=== PATIENT | male | born 1975 | race Caucasian/White ===

== ENCOUNTER 2020-08-31 20:59 | Emergency (ER) | payer SELFPAY ==
[2020-08-31 21:12] VITALS: BP 185/98; PULSE 78; RESP 18; TEMP 36.7; O2SAT 99
--- NOTE | 2020-08-31 22:13 | ED.GENADULT ---
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 Patient denies other complaints injury or trauma Related Data Allergies Allergy/AdvReac Type Severity Reaction Status Date / Time No Known Allergies Allergy Verified 08/31/20 21:16 Review of Systems Review of Systems: All systems reviewed & are unremarkable except as noted in HPI and below PMFSH Past Medical History Medical History (Updated 08/31/20 @ 22:17 by Malcolm Gomez PA-C) Obese Exam Narrative: Exam Narrative: GENERAL: Well-appearing, obese, and in no acute distress. HEAD: Normocephalic, atraumatic. EYES: PERRLA and EOMI. ENT: Nares clear, no rhinorrhea or epistaxis. Mucous membranes moist. CHEST: Clear to auscultation. No respiratory distress. No wheezes rales or rhonchi HEART: Regular rate and rhythm. No murmur heard. Normal peripheral pulses. ABDOMEN: Soft, nontender, nondistended EXTREMITIES: Normal range of motion. No edema. No tenderness of the left shoulder or left leg no cervical thoracic or lumbar tenderness SKIN: Warm, dry, no rash. NEURO: No focal deficits. Alert and oriented x3. Cranial nerves II through XII grossly intact. Neurovascularly intact. Normal speech and gait PSYCH: Normal mood and affect. Course Course Emergency Course: Patient in the room in no distress aware of case findings agreeing to follow-up as instructed Vital Signs Vital signs: Vital Signs Temperature 98.0 F 08/31/20 21:12 Pulse Rate 78 08/31/20 21:12 Respiratory Rate 18 08/31/20 21:12 Blood Pressure 185/98 H 08/31/20 21:12 Pulse Oximetry 99 08/31/20 21:12 Temperature 98.0 F 08/31/20 21:12 Pulse Rate 78 08/31/20 21:12 Respiratory Rate 18 08/31/20 21:12 Blood Pressure 185/98 H 08/31/20 21:12 Pulse Oximetry 99 08/31/20 21:12 Medical Decision Making MDM Narrative Medical decision making narrative: Patients injury or pain is consistent with musculoskeletal etiology. No signs of neurological or vascular compromise on exam. Compartments and tisues are soft without signs of compartment syndrome. Pain is felt appropriate for further evaluation on an outpatient basis. Vital Signs Vital Signs: Vital Signs Temperature 98.0 F 08/31/20 21:12 Pulse Rate 78 08/31/20 21:12 Respiratory Rate 18 08/31/20 21:12 Blood Pressure 185/98 H 08/31/20 21:12 Pulse Oximetry 99 08/31/20 21:12 Temperature 98.0 F 08/31/20 21:12 Pulse Rate 78 08/31/20 21:12 Respiratory Rate 18 08/31/20 21:12 Blood Pressure 185/98 H 08/31/20 21:12 Pulse Oximetry 99 08/31/20 21:12 Discharge Plan Discharge Clinical Impression: Arm pain, left, Acute pain of left lower extremity Patient Disposition: Home, Self-Care Condition: Stable Instructions: Antibiotic Form, Arthralgia (ED) Additional Instructions: Follow up with your primary care doctor in 5-7 days for re-evaluation. Go to ER for worsening pain, vision changes, nausea/vomiting, fever/chills, weakness, chest pain, shortness of breath, numbness/tingling, slurred speech, difficulty walking, change in mental status etc. or any other concerns. Take any prescribed medications as directed. Prescriptions: New cyclobenzaprine 10 mg tablet 10 mg PO TID PRN (Reason: muscle spasm) Qty: 14 RF: 0 Follow-
[2020-08-31] MEDS: HYDROcodone/acetaminophen (*CRX) 5-325 MG TABLET 1 TAB PO (22:39)
[2020-08-31 22:40] VITALS: BP 142/72; PULSE 87; RESP 18; O2SAT 99
== END 2020-08-31 22:41 | disposition home or self-care (01) ==
LOC: ANHED 22:24
PROVIDERS: Emergency Provider Emergency Medicine
DX: M25.512 Pain in left shoulder (principal); M79.605 Pain in left leg; E66.9 Obesity, unspecified; Z68.41 Body mass index [BMI] 40.0-44.9, adult
CPT/HCPCS: 99283; A9270